=== PATIENT | male | born 1940 | race Caucasian/White ===

== ENCOUNTER 2017-11-09 05:54 | Day surgery (SDC) | payer MEDICARE, BC ==
[2017-11-09] MEDS ORDERED: DIPRIVAN 200 MG/20 ML IV ONE (05:55)
[2017-11-09] MEDS ORDERED: Versed 2 MG/2 ML Injection IV ONE (05:55)
[2017-11-09] MEDS ORDERED: Lactated Ringers 1,000 ML IV ONE (06:15)
[2017-11-09] MEDS ORDERED: Lactated Ringers 1,000 ML IV SCH (06:30)
[2017-11-09 09:38] VITALS: BP 147/83; PULSE 87; O2SAT 95
--- NOTE | 2017-11-09 13:22 | OP ---
SURGERY DATE/TIME: 11/09/2017 0700 PREOPERATIVE DIAGNOSIS: History of colon cancer. POSTOPERATIVE DIAGNOSIS: Normal colon status post partial colectomy. PROCEDURE: Colonoscopy. SURGEON: Dr. Manzanares. ANESTHESIA: MAC. Medications given by anesthesia department. HISTORY: The patient is a 76 year-old white male patient presenting now for investigation. He reports it has been ten years since his last colonoscopy. He reports he does have a history of colon cancer and had partial colectomy. The patient was felt the need to have endoscopic evaluation. He was appraised of the risks of the procedure including the risk of perforation, phlebitis, untoward reaction to medication, bleeding and missed lesions. The patient verbalized his understanding and desired to have the procedure performed. DESCRIPTION OF PROCEDURE: The patient was given the medications by the anesthesia department. He had continuous pulse oximetry, ECG monitoring, intermittent blood pressure monitoring and tidal CO2 monitoring during the examination. He was placed in the left lateral decubitus position. A digital rectal examination was performed and revealed normal anal sphincter tone and no masses. The flexible Olympus pediatric colonoscope was used to intubate the rectum. A view of the colon was developed to the anastomotic site and beyond. Upon insertion and withdrawal, including a retroflex view in the rectum, no mucosal lesions were encountered. The scope was removed from the patient who tolerated the procedure well and was sent back to OP recovery in good condition. The prep was noted to be fair.
== END 2017-11-09 08:23 | disposition home or self-care (01) ==
LOC: SDC 05:54
PROVIDERS: ATTEND Family Medicine
PROC: 0DJD8ZZ Inspection of Lower Intestinal Tract, Via Natural or Artificial Opening Endoscopic (ICD-10-PCS; principal; 2017-11-09)
DX: Z85.038 Personal history of other malignant neoplasm of large intestine (principal); Z90.49 Acquired absence of other specified parts of digestive tract; E11.9 Type 2 diabetes mellitus without complications
CPT/HCPCS: 82962; G0105; 00812; 99100; J2250; J2704

== ENCOUNTER 2017-12-11 08:43 | Observation (INO) | payer MEDICARE, BC ==
--- NOTE | 2017-12-11 08:59 | ERPHSYRPT ---
- History of Present Illness Time Seen by Provider: 12/11/17 08:49 Historian: patient Exam Limitations: no limitations Physician History: The patient is a 77-year-old male with his complaining of left-sided chest pain with radiation to his left arm that woke him up at 2 AM this morning (7 hours ago). He was not short of breath but he was nauseated. He took 2 full size aspirin and one nitroglycerin. His pain went from a 6 out of 10 to a 2 out of 10. After his woke up this morning, he told her about the chest pain. She brings him to the emergency room. He denies sweating. His past medical history is significant for CABG, cardiac stents, cardiac pacemaker, coronary artery disease, hypertension, diabetes, hypothyroidism, colon cancer, and prostate cancer. His heart doctor is in [place]. Timing/Duration: today, hour(s) (7), sudden, improved Activities at Onset: sleep Quality: aching Location: central Chest Pain Radiation: arm (left) Severity of Pain-Max: moderate Severity of Pain-Current: mild Modifying Factors: Improves With: nitroglycerin, aspirin Associated Symptoms: nausea, No vomiting, No shortness of breath, No cough, No diaphoresis Prior Chest Pain/Cardiac Workup: angina, cardiac cath, echocardiography Nitro Today/Relief: 0.4 mg x 1, provided at home, mild relief Aspirin Treatment Today: 325 mg x 1 (times 2), provided at home Allergies/Adverse Reactions: No Known Drug Allergies Allergy (Verified 12/11/17 09:26) Home Medications: Aspirin 81 mg PO DAILY 11/07/17 [History] Clopidogrel Bisulfate 75 mg [PLAVIX 75 MG Tablet] 75 mg PO DAILY 11/07/17 [History] Isosorbide Mononitrate 30 mg [Imdur 30 MG] 30 mg PO DAILY 11/07/17 [History ] Levothyroxine Sodium 112 Mcg [Synthroid 112 Mcg] 112 mcg PO DAILY 11/07/17 [History] Lisinopril 20 mg [Zestril 20 MG] 20 mg PO DAILY 11/07/17 [History] Metformin HCl 1,000 mg PO BID 11/07/17 [History] Metoprolol Succinate 50 mg [Toprol Xl 50 MG] 50 mg PO DAILY 11/07/17 [ History] Niacin 1,000 mg PO DAILY 11/07/17 [History] Pravastatin Sodium [Pravachol] 40 mg PO DAILY 11/07/17 [History] Spironolactone 25 mg [Aldactone 25 MG] 25 mg PO DAILY 11/07/17 [History] - Review of Systems Constitutional: No Fever, No Chills Eyes: No Symptoms Ears, Nose, & Throat: No Symptoms Respiratory: No Cough, No Dyspnea Cardiac: Chest Pain, No Edema, No Syncope Abdominal/Gastrointestinal: Nausea, No Abdominal Pain, No Vomiting, No Diarrhea Genitourinary Symptoms: No Dysuria Musculoskeletal: No Back Pain, No Neck Pain Skin: No Rash Neurological: No Dizziness, No Focal Weakness, No Sensory Changes Psychological: No Symptoms Endocrine: No Symptoms Hematologic/Lymphatic: No Symptoms Immunological/Allergic: No Symptoms All Other Systems: Reviewed and Negative - Past Medical History Pertinent Past Medical History: No Neurological History: No Pertinent History ENT History: No Pertinent History Cardiac History: No Pertinent History Respiratory History: No Pertinent History Endocrine Medical History: Diabetes Type II Musculoskeletal History: No Pertinent History GI Medical History: No Pertinent History History: No Pertinent History Psycho-Social History: No Pertinent History Male Reproductive Disorders: No Pertinent History - Past Surgical History Past Surgical History: No Neuro Surgical History: No Pertinent History Cardiac: CABG, Cardiac Catheterization, Cardiac Stent, Pacemaker Respiratory: No Pertinent History Gastrointestinal: Colon Resection Genitourinary: No Pertinent History Musculoskeletal: No Pertinent History Male Surgical History: Prostate Surgery Other Surgical History: partial thyroidectomy - Social History Smoking Status: Former smoker Drug Use: none - Nursing Vital Signs Nursing Vital Signs: Initial Vital Signs Temperature 97.5 F 12/11/17 08:44 Pulse Rate 75 12/11/17 08:44 Respiratory Rate 20 12/11/17 08:44 Blood Pressure 162/82 12/11/17 08:44 O2 Sat by Pulse Oximetry 92 L 12/11/17 08:44 Pain Scale Pain Intensity 1 - Physical Exam General Appearance: no apparent distress, alert Eye Exam: PERRL/EOMI, eyes nml inspection Ears, Nose, Throat Exam: normal ENT inspection, moist mucous membranes Neck Exam: normal inspection, non-tender, supple, full range of motion Respiratory Exam: normal breath sounds, lungs clear, No respiratory distress Cardiovascular Exam: regular rate/rhythm, normal heart sounds Gastrointestinal/Abdomen Exam: soft, No tenderness, No mass Rectal Exam: not done Back Exam: normal inspection, No CVA tenderness, No vertebral tenderness Extremity Exam: normal inspection, normal range of motion Neurologic Exam: alert, oriented x 3, cooperative, normal mood/affect, sensation nml, No motor deficits Skin Exam: normal color, warm, dry SpO2 Interpretation: normal - Course EKG Interpreted by Me: RATE (paced ventricular rhythm) - Radiology Exams Chest X-ray Interpretation: Reviewed by me, Negative (pler Dr Gil) Ordered Tests: Active Orders 24 hr Category Date Time Status Architectural Draftsperson STAT Care 12/11/17 09:07 Active EKG-ER Only STAT Care 12/11/17 09:05 Active IV Insertion STAT Care 12/11/17 09:05 Active Oxygen-ED Only NASAL CANNULA 2 lpm Care 12/11/17 09:05 Active CHEST 2 VIEWS (PA AND LAT) Stat Exams 12/11/17 09:06 Completed CBC W DIFF Stat Lab 12/11/17 09:10 Completed CMP Stat Lab 12/11/17 09:10 Completed NT PRO BNP Stat Lab 12/11/17 09:10 Completed PROTIME WITH INR Stat Lab 12/11/17 09:10 Completed PTT Stat Lab 12/11/17 09:10 Completed TROPONIN Q3H Lab 12/11/17 09:15 Completed TROPONIN Q3H Lab 12/11/17 12:15 Ordered TROPONIN Q3H Lab 12/11/17 15:15 Ordered TROPONIN Q3H Lab 12/11/17 18:15 Ordered TROPONIN Q3H Lab 12/11/17 21:15 Ordered Medication Summary Discontinued Medications Generic Name Dose Route Start Last Admin Trade Name Freq PRN Reason Stop Dose Admin Nitroglycerin 0.4 mg 12/11/17 09:05 12/11/17 09:15 Nitrostat 0.4 Mg (Ed) SL 12/11/17 09:06 0.4 mg STAT ONE Administration Nitroglycerin 0.4 mg 12/11/17 10:28 12/11/17 10:00 Nitrostat 0.4 Mg (Ed) SL 12/11/17 10:29 0.4 mg STAT ONE Administration Nitroglycerin 0.4 mg 12/11/17 10:30 12/11/17 10:31 Nitrostat 0.4 Mg (Ed) SL 12/11/17 10:31 0.4 mg STAT ONE Administration Lab/Rad Data: Laboratory Result Diagrams 12/11/17 09:10 12/11/17 09:10 Laboratory Results 12/11/17 12/11/17 12/11/17 Range/Units 09:15 09:10 09:10 WBC (4.0-10.5) K/mm3 RBC (4.1-5.6) M/mm3 Hgb (12.5-18.0) gm/dl Hct (42-50) % MCV (78-100) fl MCH (26-32) pg MCHC (32-36) g/dl RDW (11.5-14.0) % Plt Count (150-450) K/mm3 MPV (6-9.5) fl Gran % (36.0-66.0) % Lymphocytes % (24.0-44.0) % Monocytes % (0.0-12.0) % Eosinophils % (0.00-5.0) % Basophils % (0.0-0.4) % Basophils # (0-0.4) INR 1.07 (0.8-3.0) APTT 34.1 (24.1-36.1) SECONDS Sodium 137 (137-145) mmol/L Potassium 4.8 (3.5-5.1) mmol/L Chloride 98 (98-107) mmol/L Carbon Dioxide 24 (22-30) mmol/L Anion Gap 19.6 H (5-15) MEQ/L BUN 21 H (9-20) mg/dL Creatinine 0.98 (0.66-1.25) mg/dL Estimated GFR > 60 ML/MIN Glucose 273 H (74-106) mg/dL Calcium 10.0 (8.4-10.2) mg/dL Total Bilirubin 0.90 (0.2-1.3) mg/dL AST 68 H (17-59) U/L ALT 66 H (0-50) U/L Alkaline Phosphatase 76 (38-126) U/L Troponin I < 0.012 (0.000-0.034) ng/mL NT-Pro-B Natriuret Pep 196 (0-1800) pg/mL Serum Total Protein 7.8 (6.3-8.2) g/dL Albumin 4.5 (3.5-5.0) g/dL 12/11/17 Range/Units 09:10 WBC 6.2 (4.0-10.5) K/mm3 RBC 4.90 (4.1-5.6) M/mm3 Hgb 15.3 (12.5-18.0) gm/dl Hct 45.0 (42-50) % MCV 91.8 (78-100) fl MCH 31.2 (26-32) pg MCHC 34.0 (32-36) g/dl RDW 12.7 (11.5-14.0) % Plt Count 115 L (150-450) K/mm3 MPV 11.4 H (6-9.5) fl Gran % 44.6 (36.0-66.0) % Lymphocytes % 46.4 H (24.0-44.0) % Monocytes % 7.4 (0.0-12.0) % Eosinophils % 1.1 (0.00-5.0) % Basophils % 0.5 (0.0-0.4) % Basophils # 0.03 (0-0.4) INR (0.8-3.0) APTT (24.1-36.1) SECONDS Sodium (137-145) mmol/L Potassium (3.5-5.1) mmol/L Chloride (98-107) mmol/L Carbon Dioxide (22-30) mmol/L Anion Gap (5-15) MEQ/L BUN (9-20) mg/dL Creatinine (0.66-1.25) mg/dL Estimated GFR ML/MIN Glucose (74-106) mg/dL Calcium (8.4-10.2) mg/dL Total Bilirubin (0.2-1.3) mg/dL AST (17-59) U/L ALT (0-50) U/L Alkaline Phosphatase (38-126) U/L Troponin I (0.000-0.034) ng/mL NT-Pro-B Natriuret Pep (0-1800) pg/mL Serum Total Protein (6.3-8.2) g/dL Albumin (3.5-5.0) g/dL - Progress Progress: improved Air Movement: good Progress Note: 12/11/17 10:29 After first NG 0.4 mg SL, chest pain went from 6 of 10 to 1 of 10. After 2nd NG, chest pain is now 0 of 10, but the left shoulder pain is 1 of 10. 12/11/17 11:17 After 3rd NG, chest pain is still 0 of 10 and left shoulder pain is still 1 of 10. Pt states shoulder pain might be "something else." Blood Culture(s) Obtained: No Antibiotics given: No Will see patient in: hospital (observation) Counseled pt/family regarding: lab results, diagnosis, rad results - Departure Time of Disposition: 11:19 Departure Disposition: Observation (per Dr Manzanares) Clinical Impression: Chest pain Condition: Stable Critical Care Time: No Referrals: BROOKE MANZANARES [Primary Care Provider] -
[2017-12-11] MEDS ORDERED: Nitrostat 0.4 MG (ED) SL ONE ×3 (09:05→10:30)
[2017-12-11 09:27] LABS: BASOPHIL % 0.5 % (0.0-0.4); Basophil (Absolute #) 0.03 (0-0.4); Eosinophil % 1.1 % (0.00-5.0); Eosinophil (Absolute #) 0.07 (0-0.5); Granulocyte Absolute (ANC) 2.75 (1.4-6.9); Granulocytes % 44.6 % (36.0-66.0); Hemoglobin 15.3 gm/dl (12.5-18.0); Lymphocyte (Absolute #) 2.87 (1.0-4.6); Lymphocytes % 46.4 % (24.0-44.0); Mean Cell Volume 91.8 fl (78-100); Mean Corpuscular Hemoglobin 31.2 pg (26-32); Mean Platelet Volume 11.4 fl (6-9.5); Monocyte (Absolute #) 0.46 (0.0-1.3); Monocytes % 7.4 % (0.0-12.0); Platelet Count 115 K/mm3 (150-450); Red Cell Distribution Width 12.7 % (11.5-14.0); White Blood Count 6.2 K/mm3 (4.0-10.5)
[2017-12-11 09:41] LABS: INR 1.07 (0.8-3.0)
[2017-12-11 09:43] LABS: PTT 34.1 SECONDS (24.1-36.1)
[2017-12-11 09:46] LABS: ALBUMIN 4.5 g/dL (3.5-5.0); ALKALINE PHOSPHATASE 76 U/L (38-126); ANION GAP 19.6 MEQ/L (5-15); BLOOD UREA NITROGEN 21 mg/dL (9-20); CHLORIDE 98 mmol/L (98-107); Carbon Dioxide 24 mmol/L (22-30); Creatinine 1 0.98 mg/dL (0.66-1.25); Glucose 273 mg/dL (74-106); Potassium 4.8 mmol/L (3.5-5.1); SGOT/AST 68 U/L (17-59); SGPT/ALT 66 U/L (0-50); SODIUM 137 mmol/L (137-145); Total Protein 7.8 g/dL (6.3-8.2)
--- NOTE | 2017-12-11 09:47 | XRAY ---
Indication: Chest pain. Comparison: None PA/lateral chest clear. Heart and mediastinal structures within normal limits with previous CABG surgery and left-sided pacemaker/leads. Bony thorax intact. Impression: Nonacute chest.
[2017-12-11 09:55] LABS: NT PRO BNP 196 pg/mL (0-1800)
[2017-12-11] MEDS ORDERED: Senokot-S Tablet PO PRN (13:08)
[2017-12-11] MEDS ORDERED: MAALOX ES 30 ML UNIT DOSE PO PRN (13:08)
[2017-12-11] MEDS ORDERED: TYLENOL 325 MG PO PRN (13:08)
[2017-12-11] MEDS ORDERED: Zofran 4 MG/2 ML VIAL IV PRN (13:08)
[2017-12-11] MEDS ORDERED: MILK OF MAGNESIA 30 ML PO PRN (13:08)
[2017-12-11] MEDS ORDERED: Nitrostat 0.4 MG Tablet SL PRN (13:08)
[2017-12-11] MEDS ORDERED: MEDICATION INTERVENTION MC SCH (16:00)
[2017-12-11] MEDS: Glucophage 500 MG PO SCH (17:04)
[2017-12-11] MEDS: NITRO-BID 2% UD PACKETS TOP SCH (21:23)
[2017-12-11] MEDS ORDERED: NON-FORMULARY ITEM (Metformin Hcl [Metformin Hcl] 1,000 MG) PO SCH (22:00)
[2017-12-11] MEDS ORDERED: ZOCOR 20MG PO SCH (22:00)
[2017-12-12] MEDS: NITRO-BID 2% UD PACKETS TOP SCH (05:36)
[2017-12-12 06:54] LABS: Risk Ratio 4.9
[2017-12-12 07:05] VITALS: BP 116/56; PULSE 67; O2SAT 94
[2017-12-12] MEDS: Glucophage 500 MG PO SCH (07:59)
--- NOTE | 2017-12-12 09:50 | PCM.DCORD ---
- Discharge Discharge Date: 12/12/17 Disposition: Home, Self-Care Prescriptions: New Nitroglycerin 2 %Ointment [Nitro-Bid 2% Ud Packets] 1 gm TOP Q8HT #90 packet Nitroglycerin 0.4 mg Tablet [Nitrostat 0.4 MG Tablet] 0.4 mg SL .Q5MIN PRN #1 bottle PRN Reason: Chest Pain Continue Metoprolol Succinate 50 mg [Toprol Xl 50 MG] 50 mg PO DAILY Levothyroxine Sodium 112 Mcg [Synthroid 112 Mcg] 112 mcg PO DAILY Pravastatin Sodium [Pravachol] 40 mg PO DAILY Niacin 1,000 mg PO DAILY Aspirin 81 mg PO DAILY Metformin HCl 1,000 mg PO BID Spironolactone 25 mg [Aldactone 25 MG] 25 mg PO DAILY Isosorbide Mononitrate 30 mg [Imdur 30 MG] 30 mg PO DAILY Lisinopril 20 mg [Zestril 20 MG] 20 mg PO DAILY Clopidogrel Bisulfate 75 mg [PLAVIX 75 MG Tablet] 75 mg PO DAILY Additional Instructions: Follow up with [facility] as soon as possible. Call [facility] office to schedule a follow up after you have seen attorney lawyer Follow up with: BENJY GOYAL [CONSULTING PHYSICIAN] - 1 Week
[2017-12-12] MEDS ORDERED: SYNTHROID 112 MCG PO SCH (10:00)
[2017-12-12] MEDS ORDERED: NON-FORMULARY ITEM (Aspirin [Aspirin] 81 MG) PO SCH (10:00)
[2017-12-12] MEDS ORDERED: PLAVIX 75 MG Tablet PO SCH (10:00)
[2017-12-12] MEDS ORDERED: Aldactone 25 MG PO SCH (10:00)
[2017-12-12] MEDS ORDERED: NON-FORMULARY ITEM (Pravastatin Sodium [Pravachol] 40 MG) PO SCH (10:00)
[2017-12-12] MEDS ORDERED: Toprol Xl 50 MG PO SCH (10:00)
[2017-12-12] MEDS ORDERED: Imdur 30 MG PO SCH (10:00)
[2017-12-12] MEDS ORDERED: Ecotrin 325 MG PO SCH (10:00)
[2017-12-12] MEDS ORDERED: Zestril 20 MG PO SCH (10:00)
[2017-12-12] MEDS ORDERED: NIACIN 1000 MG PO SCH (10:00)
[2017-12-12] MEDS ORDERED: ECOTRIN 81 MG PO SCH (10:00)
[2017-12-12] MEDS ORDERED: Nitrostat 0.4 MG (ED) SL ONE (10:19)
--- NOTE | 2017-12-14 09:05 | SSS ---
DISCHARGE DIAGNOSES: 1) UNSTABLE ANGINA PECTORIS. 2) CORONARY ARTERY DISEASE. HISTORY: The patient is a 77 year-old white male patient who presented to the emergency room with complaints of chest pressure and heaviness. He reports that it had been happening all night long but he waited until his woke up to tell her and she brought him to the emergency room for evaluation and management. The patient was admitted to the hospital to rule out myocardial infarction. HOSPITAL COURSE: The patient did receive Nitro in the emergency room. Apparently his Nitro at home was not any good as he did receive some relief from the discomfort from the Nitro in the emergency room. After the patient was admitted he had complaints of just very minor chest pressure. On the floor we added Nitro paste which afterwards he did well having only occasional minor discomfort. The patient by the morning of 12/12/2017 had ruled out for myocardial infarction with his troponins all being less than 0.012. He was felt to be ready for discharge home. He was given a prescription for Nitro paste and Nitro sublingual prescription and with instructions to see his mill hand as soon as possible. His cardiologists are out of [place] and they see him in [facility]. The patient's medications on discharge were aspirin 81 mg a day, Plavix 75 mg a day, isosorbide mononitrate 30 mg a day, Synthroid 112 mcg daily, lisinopril 20 mg daily, Metformin 1,000 mg b.i.d., metoprolol 50 mg daily, Pravastatin 40 mg a day, Spironolactone 25 mg daily. His vital signs at the time of discharge showed his temperature to be 97.9F, pulse 59, respiratory rate 19, blood pressure 108/53. O2 saturation 98%. Other laboratory studies during this day lipid panel showed LDL cholesterol 52, HDL 23. His CBC was normal. His metabolic panel showed nonfasting glucose 273, BUN 21, creatinine 0.98. Liver enzymes were slightly elevated with AST 68, ALT 66. International normalized ratio 1.07. Chest x-ray was nonacute. The patient was asked to follow up in the office after his visit with his mill hand. He is to return to the hospital if he has any further chest discomfort that was not taken care of by his sublingual Nitro.
== END 2017-12-12 10:20 | disposition home or self-care (01) ==
LOC: ED 08:43 → MED SURG 12:38
PROVIDERS: ADMIT Family Medicine; ATTEND Family Medicine
DX: I20.0 Unstable angina (principal); I25.10 Atherosclerotic heart disease of native coronary artery without angina pectoris; Z95.0 Presence of cardiac pacemaker; Z95.1 Presence of aortocoronary bypass graft; Z79.01 Long term (current) use of anticoagulants; Z79.899 Other long term (current) drug therapy
CPT/HCPCS: 36000; 36415; 71046; 80053; 80061; 82962; 83721; 83880; 84484; 85025; 85610; 85730; 93005; 93041; 93268; 99285; G0378; A9270-GY

== ENCOUNTER 2021-06-13 09:23 | Emergency (ER) | payer MEDICARE, BC ==
[2021-06-13 10:03] LABS: Absolute Neutrophil Ct (ANC) 3.15 (1.4-6.9); BASOPHIL % 0.5 % (0.0-0.4); Basophil (Absolute #) 0.03 (0-0.4); Eosinophil % 0.9 % (0.00-5.0); Eosinophil (Absolute #) 0.05 (0-0.5); Lymphocyte (Absolute #) 1.99 (1.0-4.6); Lymphocytes % 33.8 % (24.0-44.0); Mean Cell Volume 94.3 fl (78-100); Mean Corpuscular Hemoglobin 29.9 pg (26-32); Mean Corpuscular Hgb Concent. 31.7 g/dl (32-36); Mean Platelet Volume 9.5 fl (7.5-11.0); Monocyte (Absolute #) 0.66 (0.0-1.3); Monocytes % 11.2 % (0.0-12.0); Neutrophil % 53.6 % (36.0-66.0); Platelet Count 210 K/mm3 (150-450); Red Blood Count 4.35 M/mm3 (4.1-5.6); Red Cell Distribution Width 14.1 % (11.5-14.0); White Blood Count 5.9 K/mm3 (4.0-10.5)
[2021-06-13 10:06] LABS: INR 1.96 (0.8-3.0); PROTIME 23.1 SECONDS (9.4-12.5)
--- NOTE | 2021-06-13 10:17 | XRAY ---
Indication: Chest pain. Comparison: April 29, 2021. Portable chest unchanged again demonstrating mild right base infiltrate/atelectasis, CABG surgery, left pacemaker, and old right 4 rib fracture. No new/acute abnormalities.
[2021-06-13 10:21] LABS: ALBUMIN 4.2 g/dL (3.5-5.0); ANION GAP 17.9 MEQ/L (5-15); BILIRUBIN,TOTAL 0.7 mg/dL (0.2-1.3); Calcium 10.5 mg/dL (8.4-10.2); Creatinine 1 1.75 mg/dL (0.66-1.25); EST GLOMERULAR FILTRATION RATE 40.1 ML/MIN; Potassium 4.7 mmol/L (3.5-5.1); Total Protein 7.6 g/dL (6.3-8.2)
--- NOTE | 2021-06-13 10:41 | ERPHSYRPT ---
- History of Present Illness Historian: patient Exam Limitations: other (Very poor historian) Patient Subjective Stated Complaint: Pt c/o of maris chest pain for the past 3 weeks, pt had a heart cath done in [facility] on 05/30/2021 Triage Nursing Assessment: Pt was brought to the ER by his , vitals wnl, rates chest pain as 3/10, c/o of pain on maris lateral sides of chest, maris lower leg edema, skin n/w/d, denies N&V, doesn't appear to be in any distress Physician History: 80 yo wm who is a very poor historian presents w L sternal chest pain x 3 wks. Pt denies N/V/Diaphoresis/dyspnea. Pain is 3/10 on scale and has been up to 7/10. He had a cath on 05/30/21 demonstrating severe [place] CAD w patent DIANE to LAD and patent graft to OM1. Pt also had recent PE and is on Eliquis. Nothing makes the pain better or worse. Timing/Duration: other (3 wks) Activities at Onset: rest Quality: other (Pain, can not describe) Location: substernal Chest Pain Radiation: no radiation Severity of Pain-Max: moderate Severity of Pain-Current: mild Modifying Factors: Improves With: nothing Associated Symptoms: No nausea, No vomiting, No palpitations, No heartburn, No abdominal pain, No shortness of breath, No cough, No hurts to breathe, No diaphoresis, No chills, No fever, No fatigue, No weakness, No swelling/lump in chest, No syncope, No rash, No headache, No dizziness, No edema, No back pain Prior Chest Pain/Cardiac Workup: cardiac cath Nitro Today/Relief: no nitro taken today Aspirin Treatment Today: 81 mg x 1 Allergies/Adverse Reactions: No Known Drug Allergies Allergy (Verified 06/13/21 09:44) Home Medications: Aspirin 81 mg PO DAILY 11/07/17 [History] Clopidogrel Bisulfate 75 mg [PLAVIX 75 MG Tablet] 75 mg PO DAILY 11/07/17 [History] Isosorbide Mononitrate 30 mg [Imdur 30 MG] 30 mg PO DAILY 11/07/17 [History] Levothyroxine Sodium 112 Mcg [Synthroid 112 Mcg] 112 mcg PO DAILY 11/07/17 [History] Lisinopril 20 mg [Zestril 20 MG] 20 mg PO DAILY 11/07/17 [History] Metformin HCl 1,000 mg PO BID 11/07/17 [History] Metoprolol Succinate 50 mg [Toprol Xl 50 MG] 50 mg PO DAILY 11/07/17 [History] Niacin 1,000 mg PO DAILY 11/07/17 [History] Pravastatin Sodium [Pravachol] 40 mg PO DAILY 11/07/17 [History] Spironolactone 25 mg [Aldactone 25 MG] 25 mg PO DAILY 11/07/17 [History] Hx Tetanus, Diphtheria Vaccination/Date Given: No Hx Influenza Vaccination/Date Given: Yes Hx Pneumococcal Vaccination/Date Given: Yes Travel Risk - International Travel Have you traveled outside of the country in past 3 weeks: No - Coronavirus Screening Are you exhibiting any of the following symptoms?: No Close contact with a COVID-19 positive Pt in past 14-21 Days: No - Vaccine Status Have you recieved a Covid-19 vaccination: Yes [employer]: Moderna - Vaccination Dates Date of 2cond Vaccination (if applicable): 11/2020 - Review of Systems Constitutional: No Symptoms Eyes: No Symptoms Ears, Nose, & Throat: No Symptoms Respiratory: No Symptoms Cardiac: No Symptoms, Chest Pain Abdominal/Gastrointestinal: No Symptoms Genitourinary Symptoms: No Symptoms Musculoskeletal: No Symptoms Skin: No Symptoms Neurological: No Symptoms Psychological: No Symptoms Endocrine: No Symptoms Hematologic/Lymphatic: No Symptoms Immunological/Allergic: No Symptoms - Past Medical History Pertinent Past Medical History: No Neurological History: No Pertinent History ENT History: No Pertinent History Cardiac History: No Pertinent History Respiratory History: No Pertinent History Endocrine Medical History: Diabetes Type II Musculoskeletal History: No Pertinent History GI Medical History: No Pertinent History History: No Pertinent History Psycho-Social History: No Pertinent History Male Reproductive Disorders: No Pertinent History - Past Surgical History Past Surgical History: Yes Neuro Surgical History: No Pertinent History Cardiac: CABG, Cardiac Catheterization, Cardiac Stent, Pacemaker Respiratory: No Pertinent History Gastrointestinal: Colon Resection Genitourinary: No Pertinent History Musculoskeletal: No Pertinent History Male Surgical History: Prostate Surgery Other Surgical History: partial thyroidectomy - Social History Smoking Status: Never smoker Exposure to second hand smoke: No Drug Use: none Patient Lives Alone: No Significant Family History: no pertinent family hx - Nursing Vital Signs Nursing Vital Signs: Initial Vital Signs Temperature 97.8 F 06/13/21 09:35 Pulse Rate 87 06/13/21 09:35 Respiratory Rate 16 06/13/21 09:35 Blood Pressure 118/58 06/13/21 09:35 O2 Sat by Pulse Oximetry 97 06/13/21 09:35 Pain Scale Pain Intensity 0 WNL - Physical Exam General Appearance: no apparent distress Eye Exam: PERRL/EOMI, eyes nml inspection Ears, Nose, Throat Exam: normal ENT inspection, TMs normal, moist mucous membranes, tonsillar exudate Neck Exam: normal inspection, non-tender, supple, No meningismus, No mass, No Brudzinski, No Kernig's, No carotid bruit Respiratory Exam: normal breath sounds, lungs clear, airway intact, No chest t enderness, No respiratory distress Cardiovascular Exam: regular rate/rhythm, normal heart sounds, normal peripheral pulses, No murmur Gastrointestinal/Abdomen Exam: soft, normal bowel sounds, No tenderness Rectal Exam: deferred Back Exam: normal inspection, normal range of motion Extremity Exam: normal inspection, normal range of motion Neurologic Exam: alert, oriented x 3, cooperative, nml cerebellar function, nml station & gait, sensation nml, No motor deficits, No sensory deficit Skin Exam: normal color, warm, dry Lymphatic Exam: No adenopathy SpO2 Interpretation: normal SpO2: 97 O2 Delivery: Room Air - Course Nursing assessment & vital signs reviewed: Yes EKG Interpreted by Me: RATE (NSR/R83/LBBB/) - Radiology Exams Chest X-ray Interpretation: Discussed w/ radiologist (No acute changes per Rad) Ordered Tests: Active Orders 24 hr Category Date Time Status CHEST 1 VIEW (PORTABLE) Stat Exams 06/13/21 09:43 Completed CBC W DIFF Stat Lab 06/13/21 09:53 Completed CMP Stat Lab 06/13/21 09:53 Completed NT PRO BNP Stat Lab 06/13/21 09:53 Completed PROTIME WITH INR Stat Lab 06/13/21 09:53 Completed PTT Stat Lab 06/13/21 09:53 Completed TROPONIN Q3H Lab 06/13/21 09:53 Completed TROPONIN Q3H Lab 06/13/21 12:57 Completed Medication Summary Discontinued Medications Generic Name Dose Route Start Last Admin Trade Name Bean PRIngrid Reason Stop Dose Admin Aspirin 324 mg 06/13/21 10:47 06/13/21 11:11 Baby Aspirin 81 Mg Chew PO 06/13/21 10:48 324 mg STAT ONE Administration Aspirin Confirm 06/13/21 11:04 Baby Aspirin 81 Mg Chew Administered 06/13/21 11:05 Dose 324 mg .ROUTE .STK-MED ONE Morphine Sulfate 2 mg 06/13/21 10:47 06/13/21 11:11 Morphine Sulfate 2 Mg Inj IV 06/13/21 10:48 2 mg STAT ONE Administration Morphine Sulfate Confirm 06/13/21 11:04 Morphine Sulfate 2 Mg Inj Administered 06/13/21 11:05 Dose 2 mg .ROUTE .STK-MED ONE Ondansetron HCl 4 mg 06/13/21 10:48 06/13/21 11:10 Zofran 4 Mg/2 Ml Vial IV 06/13/21 10:49 4 mg STAT ONE Administration Ondansetron HCl Confirm 06/13/21 11:04 Zofran 4 Mg/2 Ml Vial Administered 06/13/21 11:05 Dose 4 mg .ROUTE .STK-MED ONE Lab/Rad Data: Laboratory Result Diagrams 06/13/21 09:53 06/13/21 09:53 Laboratory Results 06/13/21 06/13/21 06/13/21 Range/Units 12:57 09:53 09:53 WBC (4.0-10.5) K/mm3 RBC (4.1-5.6) M/mm3 Hgb (12.5-18.0) gm/dl Hct (42-50) % MCV (78-100) fl MCH (26-32) pg MCHC (32-36) g/dl RDW (11.5-14.0) % Plt Count (150-450) K/mm3 MPV (7.5-11.0) fl Gran % (36.0-66.0) % Eos # (Auto) (0-0.5) Absolute Lymphs (auto) (1.0-4.6) Absolute Monos (auto) (0.0-1.3) Lymphocytes % (24.0-44.0) % Monocytes % (0.0-12.0) % Eosinophils % (0.00-5.0) % Basophils % (0.0-0.4) % Absolute Granulocytes (1.4-6.9) Basophils # (0-0.4) PT 23.1 H (9.4-12.5) SECONDS INR 1.96 (0.8-3.0) APTT 38.0 H (25.1-36.5) SECONDS Sodium (137-145) mmol/L Potassium (3.5-5.1) mmol/L Chloride (98-107) mmol/L Carbon Dioxide (22-30) mmol/L Anion Gap (5-15) MEQ/L BUN (9-20) mg/dL Creatinine (0.66-1.25) mg/dL Estimated GFR ML/MIN Glucose (74-106) mg/dL Calcium (8.4-10.2) mg/dL Total Bilirubin (0.2-1.3) mg/dL AST (17-59) U/L ALT (0-50) U/L Alkaline Phosphatase (38-126) U/L Troponin I 0.066 H* 0.081 H* (0.000-0.034) ng/mL NT-Pro-B Natriuret Pep (0-1800) pg/mL Serum Total Protein (6.3-8.2) g/dL Albumin (3.5-5.0) g/dL 06/13/21 06/13/21 Range/Units 09:53 09:53 WBC 5.9 (4.0-10.5) K/mm3 RBC 4.35 (4.1-5.6) M/mm3 Hgb 13.0 (12.5-18.0) gm/dl Hct 41.0 L (42-50) % MCV 94.3 (78-100) fl MCH 29.9 (26-32) pg MCHC 31.7 L (32-36) g/dl RDW 14.1 H (11.5-14.0) % Plt Count 210 (150-450) K/mm3 MPV 9.5 (7.5-11.0) fl Gran % 53.6 (36.0-66.0) % Eos # (Auto) 0.05 (0-0.5) Absolute Lymphs (auto) 1.99 (1.0-4.6) Absolute Monos (auto) 0.66 (0.0-1.3) Lymphocytes % 33.8 (24.0-44.0) % Monocytes % 11.2 (0.0-12.0) % Eosinophils % 0.9 (0.00-5.0) % Basophils % 0.5 (0.0-0.4) % Absolute Granulocytes 3.15 (1.4-6.9) Basophils # 0.03 (0-0.4) PT (9.4-12.5) SECONDS INR (0.8-3.0) APTT (25.1-36.5) SECONDS Sodium 137 (137-145) mmol/L Potassium 4.7 (3.5-5.1) mmol/L Chloride 100 (98-107) mmol/L Carbon Dioxide 25 (22-30) mmol/L Anion Gap 17.9 H (5-15) MEQ/L BUN 46 H (9-20) mg/dL Creatinine 1.75 H (0.66-1.25) mg/dL Estimated GFR 40.1 ML/MIN Glucose 106 (74-106) mg/dL Calcium 10.5 H (8.4-10.2) mg/dL Total Bilirubin 0.70 (0.2-1.3) mg/dL AST 58 (17-59) U/L ALT 37 (0-50) U/L Alkaline Phosphatase 204 H (38-126) U/L Troponin I (0.000-0.034) ng/mL NT-Pro-B Natriuret Pep 392 (0-1800) pg/mL Serum Total Protein 7.6 (6.3-8.2) g/dL Albumin 4.2 (3.5-5.0) g/dL - Progress Progress Note: 06/13/21 11:27 ASA 324mg po chewable [id number] Iv/4mg IV Zofran Spoke w Dr. Caicedo at [facility], wants to check 3 hr trop and be called back 06/13/21 14:12 Pain much improved w MSO4-4mg IV Zofran Troponin decreased but still mildly elevated Pt accepted by Dr. Caicedo at [facility] 06/13/21 20:22 Pt elected to leave AMA. Risks explained to pt by nursing. Counseled pt/family regarding: lab results, diagnosis, rad results - Departure Departure Disposition: AMA Clinical Impression: Chest pain, Elevated troponin Condition: Stable Critical Care Time: No Referrals: BROOKE MADRIGAL [Primary Care Provider] -
[2021-06-13] MEDS ORDERED: MORPHINE SULFATE 2 MG INJ IV ONE (10:47)
[2021-06-13] MEDS ORDERED: BABY ASPIRIN 81 MG CHEW PO ONE (10:47)
[2021-06-13] MEDS ORDERED: Zofran 4 MG/2 ML VIAL IV ONE (10:48)
[2021-06-13] MEDS ORDERED: Zofran 4 MG/2 ML VIAL ONE (11:04)
[2021-06-13] MEDS ORDERED: BABY ASPIRIN 81 MG CHEW ONE (11:04)
[2021-06-13] MEDS ORDERED: MORPHINE SULFATE 2 MG INJ ONE (11:04)
[2021-06-13 14:16] VITALS: O2SAT 97
[2021-06-13 14:23] VITALS: BP 94/44; PULSE 70
== END 2021-06-13 14:45 | disposition left against medical advice (07) ==
LOC: ED 09:23
DX: R07.89 Other chest pain (principal); R79.1 Abnormal coagulation profile; R79.89 Other specified abnormal findings of blood chemistry; Z86.711 Personal history of pulmonary embolism; Z79.01 Long term (current) use of anticoagulants; Z79.899 Other long term (current) drug therapy; E11.9 Type 2 diabetes mellitus without complications
CPT/HCPCS: 36415; 71045; 80053; 83880; 84484; 85025; 85610; 85730; 96374; 96375; 99284; J2270; J2405; A9270-GY